=== PATIENT | male | born 1970 | race Caucasian/White ===

== ENCOUNTER 2016-11-24 19:40 | Emergency (ER) | payer OTHER ==
[2016-11-24 20:29] LABS: HEMOGLOBIN 14.8 gm/dl (14.0-17.5); RED BLOOD COUNT 4.65 M/UL (4.20-5.50); WHITE BLOOD COUNT 9.1 K/UL (4.5-11.0)
[2016-11-24 20:57] LABS: BUN/CREATININE RATIO 10 (0-10)
[2017-02-28] MEDS ORDERED: NORVASC 5 MG TAB5 MG PO (06:36)
[2017-02-28] MEDS ORDERED: METHIMAZOLE5 MG PO (06:36)
[2017-02-28] MEDS ORDERED: TOPROL XL25 MG PO (06:37)
[2017-02-28] MEDS ORDERED: PRILOSEC OTC20 MG PO (06:38)
== END 2016-11-24 21:48 | disposition home or self-care (01) ==
LOC: ER1 19:40
PROVIDERS: Emergency Medicine
DX: R07.89 Other chest pain (principal); K21.9 Gastro-esophageal reflux disease without esophagitis; E03.9 Hypothyroidism, unspecified; F17.210 Nicotine dependence, cigarettes, uncomplicated; Z79.899 Other long term (current) drug therapy; Z98.61 Coronary angioplasty status
CPT/HCPCS: 36415; 71020; 80053; 82550; 82553; 83874; 83880; 84484; 85025; 85379; 93005; 99285

== ENCOUNTER → 2016-12-14 | Outpatient (CLI) | payer OTHER ==
[~2016-12-14] MED LIST: METHIMAZOLE5 MG PO; NORVASC 5 MG TAB5 MG PO; PRILOSEC OTC20 MG PO; TOPROL XL25 MG PO
== END ==
LOC: HEART 5 07:56
DX: R07.9 Chest pain, unspecified (principal); R94.39 Abnormal result of other cardiovascular function study
CPT/HCPCS: 78452; A9502; J2785